=== PATIENT | male | born 1990 | race Two or more races ===

== ENCOUNTER → 2018-05-01 | Outpatient (CLI) | payer OTHER | END | disposition home or self-care (01) | LOC: RAD 13:25 | PROVIDERS: ATTEND Family Medicine | DX: K76.0 Fatty (change of) liver, not elsewhere classified (principal); K40.90 Unilateral inguinal hernia, without obstruction or gangrene, not specified as recurrent; K57.32 Diverticulitis of large intestine without perforation or abscess without bleeding; I20.9 Angina pectoris, unspecified; M54.5 Low back pain; G56.22 Lesion of ulnar nerve, left upper limb | CPT/HCPCS: 74177 ==